=== PATIENT | male | born 1960 | race African-American/Black ===

== ENCOUNTER 2023-08-10 07:59 | Outpatient (CLI) | payer MEDICARE, MEDICAID, SELFPAY | END 2023-08-10 08:00 | disposition home or self-care (01) | LOC: ANHAUDASC 08:00 | PROVIDERS: PCP Physician Assistant; Visit Provider Physician Assistant | DX: H90.3 Sensorineural hearing loss, bilateral (principal); H93.12 Tinnitus, left ear | CPT/HCPCS: 92557; 92567 ==